=== PATIENT | male | born 1985 | race Caucasian/White ===

== ENCOUNTER 2018-07-23 13:41 | Emergency (ER) | payer SELFPAY ==
[2018-07-23 13:50] VITALS: BP 90/67; PULSE 94; RESP 16; TEMP 36.4; O2SAT 96
--- NOTE | 2018-07-23 14:23 | ED.GENADUL_ITS ---
Discharge Plan Disposition Patient Disposition: HOME Condition: Good Discharge Details Chief Complaint: RespSymp Clinical Impression: Asthma exacerbation ED Provider: Henrik Jarvis Home Meds and New Rx's Prescriptions: New prednisone 20 mg tablet 60 mg PO TID 5 Days Qty: 45 RF: 0 doxycycline hyclate 100 mg tablet 100 mg PO BID Qty: 14 RF: 0 Continue albuterol sulfate 90 mcg/actuation Hfa Aerosol Inhaler RF: 0 Discharge Instructions Additional Instructions: Your symptoms are likely due to a virus but given your smoking history I am treating you with antibiotics Follow up with your primary care provider in a week especially if no improvement. You should discuss if you should have testing done to evaluate for copd (chronic obstructive pulmonary disease). If you have severe worsening shortness of breath or pain return to the emergency department for reevaluation Medical Decision Making 33 yo male who quit smoking 2 months ago comes in with complaint of cough with sputum for 4 weeks and chills. Denies recent travel. He has wheezing at the bases bilaterally otherwise no other abnormal lung exam findings. No leg swelling or jvd. Doubt pna given well apeparance, suspect viral uri but given his smoking hx will treat as possible copd exacerbation with abx and steroids. ADvised f/u with pcp and return precautions given Differential Diagnosis copd, asthma, pneumonia, uri HPI General Mode of arrival: ambulatory . Date/Time Provider Initiated Documentation: 07/23/18 14:13 . Limitations to Documentation: no limitations . Information obtained by: patient . History of Present Illness 33 year old M presents to the emergency department with the chief complaint of cough, described as moderate, with intensity rated at 5. Patient started experiencing this week(s) (5) and it has been constant. No relieving factors improve symptom(s), No exacerbating factors reported . Patient notes no other symptoms.. Patient did receive the following treatments prior to arrival, none Related Data Home Medications Medication Instructions Recorded Confirmed albuterol sulfate 07/23/18 doxycycline hyclate 100 mg PO BID #14 tab 07/23/18 prednisone 60 mg PO TID 5 Days #45 tab 07/23/18 Previous Rx's Medication Instructions Recorded doxycycline hyclate 100 mg PO BID #14 tab 07/23/18 prednisone 60 mg PO TID 5 Days #45 tab 07/23/18 Allergies Allergy/AdvReac Type Severity Reaction Status Date / Time No Known Allergies Allergy Unverified 07/23/18 13:56 General Stated Complaint: RespSymp OTTO: 5 Review of Systems Review of Systems All systems reviewed & are unremarkable except as noted in HPI and below Constitutional Denies fever(s) ENT Denies change in voice Cardiovascular Denies chest pain and Denies dyspnea Respiratory Denies dyspnea Gastrointestinal Denies abdominal pain, Denies nausea and Denies vomiting Genitourinary Denies dysuria Musculoskeletal Denies joint swelling Integumentary/Breasts Denies rash PFSH Social History Smoking/Tobacco Use Status: Former Tobacco Use Exam Const General: no acute distress Orientation: alert HENMT Head: normal to inspection Ears: external ears normal General nose exam: external nose normal Mouth: moist mucous membranes Eyes General: appearance normal, both eyes and all related structures Neck Neck: normal visual inspection Resp Effort & Inspection: normal respiratory effort and able to speak in complete sentences Cardio Rate: regular rate Skin General skin exam: no rashes or lesions noted Neuro General: alert and oriented x3 Extrem General: normal to inspection Psych Mental Status: mental status grossly normal Course Vital Signs Temperature 36.4 C L 07/23/18 13:50 Pulse 94 H 07/23/18 13:50 Respiratory Rate 16 07/23/18 13:50 Blood Pressure 90/67 L 07/23/18 13:50 Pulse Oximetry 96 07/23/18 13:50 Temperature 36.4 C L 07/23/18 13:50 Temperature Source Skin 07/23/18 13:50 Pulse 94 H 07/23/18 13:50 Respiratory Rate 16 07/23/18 13:50 Respiratory Effort 07/23/18 14:10 Blood Pressure 90/67 L 07/23/18 13:50 Blood Pressure Position Sitting 07/23/18 13:50 Pulse Oximetry 96 07/23/18 13:50 Oxygen Delivery Method Room Air 07/23/18 13:50 Oxygen Flow Rate 0 07/23/18 13:50 Pain Level 0 07/23/18 13:50
== END 2018-07-23 14:31 | disposition home or self-care (01) ==
PROVIDERS: Emergency Provider Emergency Medicine
DX: J45.901 Unspecified asthma with (acute) exacerbation (principal); Z87.891 Personal history of nicotine dependence
CPT/HCPCS: 99283